=== PATIENT | female | born 1990 ===

== ENCOUNTER 2017-03-05 15:52 | Emergency (ER) | payer SELFPAY ==
[2017-03-05 16:32] LABS: Basophils % (Auto) 0.4 % (0.0-1.8); Eosinophils % (Auto) 2.2 % (0.0-4.3); Hematocrit 40.9 % (30.3-42.9); Hemoglobin 13.7 gm/dl (10.1-14.3); Mean Corpuscular HGB Conc 34 % (30-34); Mean Corpuscular Hemoglobin 31 pg (28-32); Mean Corpuscular Volume 92 fl (79-97); Platelet Count 205 K/mm3 (140-440); Red Blood Count 4.43 M/mm3 (3.65-5.03); Red Cell Distribution Width 13.5 % (13.2-15.2); White Blood Count 9.2 K/mm3 (4.5-11.0)
[2017-03-05 16:38] LABS: Bacteria,Urine 1+ /HPF (Negative); Bilirubin,Urine NEG (Negative); Blood,Urine LG (Negative); Ketones,Urine NEG (Negative); Leukocyte Esterase,Urine SM (Negative); Mucus,Urine 3+ /HPF; Nitrite,Urine NEG (Negative); Urobilinogen,Urine < 2.0 mg/dL (<2.0)
[2017-03-05 16:41] LABS: RBC,Urine > 182.0 /HPF (0.0-6.0)
--- NOTE | 2017-03-05 18:48 | Ultrasound Report ---
FINAL REPORT PROCEDURE: US OB TRANSVAGINAL and transabdominal TECHNIQUE: Real-time transabdominal and transvaginal sonography of the uterus, placenta, amniotic fluid, adnexa, and fetus was performed with image documentation. Measurements were obtained to determine age/size. M-mode Doppler was used to document heartbeat. CPT 99418 and 12182 HISTORY: vag bleed COMPARISON: No prior studies are available for comparison. FINDINGS: ADDITIONAL GESTATION: None. CRL: 21 mm, which corresponds to a gestational age of: 8 weeks, 5 days. Yolk Sac: Not visualized Embryonic Cardiac Activity: None visualized Gestational Sac: Gestational sac is located within the endocervical canal Right Ovary: Normal. Left Ovary: Normal. IMPRESSION: Findings are compatible with 1st trimester demise. Gestational sac is located within the endocervical canal PROCEDURE: TECHNIQUE: HISTORY: COMPARISON: FINDINGS: IMPRESSION:
--- NOTE | 2017-03-05 18:48 | Ultrasound Report ---
FINAL REPORT PROCEDURE: US OB TRANSVAGINAL and transabdominal TECHNIQUE: Real-time transabdominal and transvaginal sonography of the uterus, placenta, amniotic fluid, adnexa, and fetus was performed with image documentation. Measurements were obtained to determine age/size. M-mode Doppler was used to document heartbeat. CPT 37351 and 85457 HISTORY: vag bleed COMPARISON: No prior studies are available for comparison. FINDINGS: ADDITIONAL GESTATION: None. CRL: 21 mm, which corresponds to a gestational age of: 8 weeks, 5 days. Yolk Sac: Not visualized Embryonic Cardiac Activity: None visualized Gestational Sac: Gestational sac is located within the endocervical canal Right Ovary: Normal. Left Ovary: Normal. IMPRESSION: Findings are compatible with 1st trimester demise. Gestational sac is located within the endocervical canal
--- NOTE | 2017-03-05 20:09 | Emergency Department Report ---
ED Female HPI - General Chief complaint: Vaginal Bleeding Stated complaint: MISCARRIAGE Time Seen by Provider: 03/05/17 20:08 Source: patient, RN notes reviewed Mode of arrival: Ambulatory Limitations: No Limitations - History of Present Illness Initial comments: This is a 26-year-old female, the patient is previously unknown to me, she is 4, para 3, last menstrual period was 12/31/2016, she does not have a private planer tailer. She presents to the ER with crampy lower abdominal discomfort and vaginal bleeding 3 days. She reports passing tissues and clots. The pain is achy. It increases with palpation, it decreases with rest. No irritative or obstructive urinary symptoms. No right lower quadrant pain, patient reports normal defecation. No constipation. MD Complaint: vaginal bleeding, pelvic pain -: Gradual Location: suprapubic Severity: moderate Quality: cramping Consistency: intermittent Improves with: other (as per history of present illness) Worsens with: other (history of present illness) Are you Now?: Yes Associated Symptoms: vaginal bleeding, abdominal pain - Related Data Sexually active: Yes Allergies Allergy/AdvReac Type Severity Reaction Status Date / Time sulfamethoxazole AdvReac Hives Verified 03/05/17 16:09 [From Bactrim] trimethoprim [From Bactrim] AdvReac Hives Verified 03/05/17 16:09 ED Review of Systems ROS: Stated complaint: MISCARRIAGE Other details as noted in HPI Constitutional: malaise. denies: fever Eyes: denies: eye discharge ENT: denies: epistaxis Respiratory: denies: cough Cardiovascular: denies: chest pain Gastrointestinal: abdominal pain Genitourinary: abnormal menses Musculoskeletal: as per HPI Skin: as per HPI Neurological: as per HPI Psychiatric: anxiety ED Past Medical Hx - Past Medical History Previous Medical History?: No - Surgical History Past Surgical History?: Yes Additional Surgical History: - Social History Smoking Status: Never Smoker Substance Use Type: None ED Physical Exam - General Limitations: No Limitations General appearance: alert, in no apparent distress - Head Head exam: Present: atraumatic, normocephalic - Eye Eye exam: Present: normal appearance, EOMI. Absent: nystagmus - ENT ENT exam: Present: normal exam, normal orophraynx, mucous membranes moist, normal external ear exam - Neck Neck exam: Present: normal inspection, full ROM. Absent: tenderness, meningismus - Respiratory Respiratory exam: Present: normal lung sounds bilaterally. Absent: respiratory distress, wheezes, rales, rhonchi, stridor, chest wall tenderness - Cardiovascular Cardiovascular Exam: Present: regular rate, normal rhythm, normal heart sounds. Absent: bradycardia, tachycardia, irregular rhythm, systolic murmur, diastolic murmur, rubs, gallop - GI/Abdominal GI/Abdominal exam: Present: soft, normal bowel sounds. Absent: distended, tenderness, guarding, rebound, rigid, pulsatile mass - External exam: Present: normal external exam Speculum exam: Present: vaginal bleeding, other (escorted by nurse Terra Hernandez) - Extremities Exam Extremities exam: Present: normal inspection, full ROM, normal capillary refill. Absent: tenderness, pedal edema, joint swelling, calf tenderness - Back Exam Back exam: Present: normal inspection, full ROM. Absent: tenderness, CVA tenderness (R), CVA tenderness (L), muscle spasm, paraspinal tenderness, vertebral tenderness - Neurological Exam Neurological exam: Present: alert, oriented X3, normal gait, other (Extraocular movements intact. Tongue midline. No facial droop. Facial sensation intact to light touch in the V1, V2, V3 distribution bilaterally. 5 and 5 strength in 4 extremities.. Sensation is intact to light touch in 4 extremities.). Absent : motor sensory deficit - Psychiatric Psychiatric exam: Present: normal affect, normal mood - Skin Skin exam: Present: warm, dry, intact, normal color. Absent: rash ED Course Vital Signs 03/05/17 03/05/17 03/05/17 16:06 20:08 21:41 Temperature 98.1 F 98 F Pulse Rate 88 85 Respiratory 16 16 16 Rate Blood Pressure 113/73 Blood Pressure 109/74 [Left] O2 Sat by Pulse 100 100 100 Oximetry ED Medical Decision Making - Lab Data Result diagrams: 03/05/17 16:12 Vital Signs 03/05/17 03/05/17 16:06 20:08 Temperature 98.1 F 98 F Pulse Rate 88 85 Respiratory 16 16 Rate Blood Pressure 113/73 Blood Pressure 109/74 [Left] O2 Sat by Pulse 100 100 Oximetry Lab Results 03/05/17 03/05/17 03/05/17 Range/Units 14:15 16:12 16:12 WBC 9.2 (4.5-11.0) K/mm3 RBC 4.43 (3.65-5.03) M/mm3 Hgb 13.7 (10.1-14.3) gm/dl Hct 40.9 (30.3-42.9) % MCV 92 (79-97) fl MCH 31 (28-32) pg MCHC 34 (30-34) % RDW 13.5 (13.2-15.2) % Plt Count 205 (140-440) K/mm3 Lymph % (Auto) 21.7 (13.4-35.0) % [place] % (Auto) 3.8 (0.0-7.3) % Eos % (Auto) 2.2 (0.0-4.3) % Baso % (Auto) 0.4 (0.0-1.8) % Lymph # 2.0 (1.2-5.4) K/mm3 [place] # 0.4 (0.0-0.8) K/mm3 Eos # 0.2 (0.0-0.4) K/mm3 Baso # 0.0 (0.0-0.1) K/mm3 Seg Neutrophils % 71.9 H (40.0-70.0) % Seg Neutrophils # 6.6 (1.8-7.7) K/mm3 HCG, Quant 785.3 H (0-4) mIU/mL Urine Color (Yellow) Urine Turbidity (Clear) Urine pH (5.0-7.0) Ur Specific [place] (1.003-1.030) Urine Protein (Negative) mg/dL Urine Glucose (UA) (Negative) mg/dL Urine Ketones (Negative) mg/dL Urine Blood (Negative) Urine Nitrite (Negative) Urine Bilirubin (Negative) Urine Urobilinogen (<2.0) mg/dL Ur Leukocyte Esterase (Negative) Urine WBC (Auto) (0.0-6.0) /HPF Urine RBC (Auto) (0.0-6.0) /HPF U Epithel Cells (Auto) (0-13.0) /HPF Urine Bacteria (Auto) (Negative) /HPF Urine Mucus /HPF Blood Type A POSITIVE Antibody Screen Negative 03/05/17 Range/Units 16:22 WBC (4.5-11.0) K/mm3 RBC (3.65-5.03) M/mm3 Hgb (10.1-14.3) gm/dl Hct (30.3-42.9) % MCV (79-97) fl MCH (28-32) pg MCHC (30-34) % RDW (13.2-15.2) % Plt Count (140-440) K/mm3 Lymph % (Auto) (13.4-35.0) % [place] % (Auto) (0.0-7.3) % Eos % (Auto) (0.0-4.3) % Baso % (Auto) (0.0-1.8) % Lymph # (1.2-5.4) K/mm3 [place] # (0.0-0.8) K/mm3 Eos # (0.0-0.4) K/mm3 Baso # (0.0-0.1) K/mm3 Seg Neutrophils % (40.0-70.0) % Seg Neutrophils # (1.8-7.7) K/mm3 HCG, Quant (0-4) mIU/mL Urine Color Yellow (Yellow) Urine Turbidity Slightly-cloudy (Clear) Urine pH 6.0 (5.0-7.0) Ur Specific [place] 1.023 (1.003-1.030) Urine Protein 100 mg/dl (Negative) mg/dL Urine Glucose (UA) Neg (Negative) mg/dL Urine Ketones Neg (Negative) mg/dL Urine Blood Lg (Negative) Urine Nitrite Neg (Negative) Urine Bilirubin Neg (Negative) Urine Urobilinogen < 2.0 (<2.0) mg/dL Ur Leukocyte Esterase Sm (Negative) Urine WBC (Auto) 26.0 H (0.0-6.0) /HPF Urine RBC (Auto) > 182.0 (0.0-6.0) /HPF U Epithel Cells (Auto) 22.0 H (0-13.0) /HPF Urine Bacteria (Auto) 1+ (Negative) /HPF Urine Mucus 3+ /HPF Blood Type Antibody Screen - Radiology Data Radiology results: report reviewed, image reviewed Obstetrics ultrasound demonstrates first trimester demise, gestational sac noted within the endocervical canal. - Medical Decision Making Differential diagnosis: Miscarriage Assessment and plan: 26-year-old female with vaginal bleeding and cramping, ultrasound demonstrating gestational sac in the endocervical canal, lines are consistent with inevitable miscarriage. Patient is Rh+, she is afebrile, with reassuring vital signs, and is tolerating liquid feeds, and she denies irritative and obstructive urinary symptoms. The patient will be managed expectantly, and she will be discharged at this time, return precautions are reviewed. Critical care attestation.: If time is entered above; I have spent that time in minutes in the direct care of this critically ill patient, excluding procedure time. ED Disposition Clinical Impression: Miscarriage Disposition: DC- TO HOME OR SELFCARE Is pt being admited?: No Does the pt Need Aspirin: No Condition: Stable Instructions: Spontaneous Miscarriage (ED) Additional Instructions: Rest and avoid heavy lifting, avoid strenuous physical activity, and avoid sexual activity. Follow up with a planer tailer within the next 7-10 days, return to the ER right away with new pain, worsening pain, migration of pain, fevers, chills, lethargy, irritability, projectile vomiting, inability to tolerate liquid feeds. Do not resume sexual intimacy until cleared by a private planer tailer. Referrals: [facility] [Primary Care Provider] - 3-5 Days [facility] [Provider Group] - 3-5 Days [facility] [Provider Group] - 3-5 Days [facility] [Provider Group] - 3-5 Days
[2017-03-05] MEDS ORDERED: TYLENOL PO ONE (20:35)
[2017-03-05] MEDS ORDERED: MOTRIN PO ONE (20:35)
[2017-03-05 20:36] VITALS: BP 109/74
== END 2017-03-05 21:30 | disposition home or self-care (01) ==
LOC: ED 15:52
DX: O03.9 Complete or unspecified spontaneous abortion without complication (principal); Z88.8 Allergy status to other drugs, medicaments and biological substances; Z3A.08 8 weeks gestation of pregnancy
CPT/HCPCS: 36415; 76801; 76817; 81001; 84702; 85025; 86850; 86900; 86901